=== PATIENT | female | born 1940 | race Caucasian/White ===

== ENCOUNTER → 2018-06-18 14:39 | Outpatient (CLI) | payer MEDICARE, MEDICAID, SELFPAY ==
--- NOTE | 2018-06-18 14:48 | RAD_ITS ---
STUDY: X-RAY - LEFT SHOULDER REASON FOR EXAM: Pain radiating into neck and down arm, no specific injury. TECHNIQUE: 4 view(s) of the shoulder. COMPARISON: None. FINDINGS: Normal glenohumeral articulation. Normal acromioclavicular joint. Normal acromion. Normal humeral head and visualized proximal humerus. The soft tissue structures are unremarkable. Normal visualized pulmonary apex. RAD/Shoulder min 2 Views IMPRESSION: Unremarkable x-ray examination of the left shoulder. Electronically Signed: Koko Morton MD at 15:48 EDT Tel , Service support ,
== END ==
PROVIDERS: Family Provider Family Medicine; PCP Family Medicine; Referring Provider Nurse Practitioner Family; Visit Provider Nurse Practitioner Family
DX: M25.512 Pain in left shoulder (principal)
CPT/HCPCS: 73030

== ENCOUNTER → 2020-08-20 14:13 | Outpatient (CLI) | payer MEDICARE, MEDICAID, SELFPAY ==
[2020-08-20 17:24] LABS: Erythrocyte Sedimentation Rate 3 mm/hr (0-30)
[2020-08-20 17:26] LABS: Absolute Lymphocyte Count 0.75 X10^3/uL (0.83-4.51); Absolute Neutrophil Count 10.9 X10^3/uL (2.0-7.7); Basophil# 0.04 X10^3/uL; Basophil% 0.3 % (0-1); Eosinophil# 0.02 X10^3/uL; Eosinophils% 0.2 % (0-5); Hematocrit 41.1 % (37-47); Lymphocyte # 0.75 X10^3/ul (0.83-4.51); Lymphocyte % 6.2 % (19-41); Mean Corp Hgb Conc 31.6 g/dL (32-36); Mean Corpuscular Hgb 26.7 pg (27.0-32.0); Mean Corpuscular Volume 84.6 fL (81-99); Mean Platelet Vol. 11.2 fl (6.2-12.0); Monocyte# 0.44 X10^3/uL; Monocyte% 3.6 % (0-10); NRBC Flagged by Analyzer 0 % (0-5); Neutrophil # 10.87 X10^3/uL (2.7-7.7); Neutrophil % 89.2 % (47-70); Platelet Count 271 K/mm3 (150-450); RBC Distribution Width CV 13.1 % (11.6-14.6); RBC Distribution Width SD 40.3 fl (35.1-43.9); Red Blood Count 4.86 M/mm3 (4.2-5.4); White Blood Count 12.2 K/mm3 (4.4-11.0)
[2020-08-20 17:38] LABS: CRP < 2.90 mg/L (0.0-3.0)
== END ==
PROVIDERS: PCP Family Medicine; Referring Provider Specialist; Visit Provider Specialist
DX: Z96.651 Presence of right artificial knee joint (principal)
CPT/HCPCS: 36415; 85025; 85652; 86140

== ENCOUNTER 2020-09-30 11:07 | Emergency (ER) | payer MEDICARE, MEDICAID, SELFPAY ==
[2020-09-30 11:08] VITALS: BP 141/60; PULSE 72; RESP 14; TEMP 36.6; O2SAT 100; BMI 27.4
--- NOTE | 2020-09-30 11:47 | ED.VIS.LOWEX ---
HPI History of Present Illness Chief Complaint: Lower Extremity Injury Informant: patient Occured/Mechanism Comment: No history of trauma. Onset/Context/Timing Context: Sudden Onset Timing: Continuous Quality of Pain: Dull and Aching Location: Right knee Current Severity: Mild Maximum Severity: Moderate Worsened by: Weightbearing Relieved by: Rest Associated Symptoms Associated Symptoms: Negative for Parasthesia, Weakness and Loss of Funtion Narrative Narrative: Patient is an elderly woman with history of type 2 diabetes, coronary disease, GERD and osteoarthritis. She is status post right total knee arthroplasty by Dr. Earl Juárez last year. He is concerned she has rheumatoid arthritis. She not able to see a color checker roving or yarn until the latter portion of November. Patient states she was admitted for similar presentation 1 month ago. She states she was placed on Medrol Dosepak with marked improvement. She denies fever, chills night sweats. She denies any other complaints. She did fall 3 days ago. She did hit her head. There is no loss conscious. She is not amnestic. She is not on an anticoagulant. She did sustain a bruise to her left leg. Tetanus Immunization: 5-10 years Prior similar symptoms: Yes Recent Illness/Hospitalization: Yes (1 month ago) PFSH PFS Home Medications alendronate [Fosamax] 70 mg PO QWEEK 04/06/16 [History Last Taken Unknown] calcium carbonate-vitamin D3 [Caltrate 600 Plus D3 Tablet] 1 ea PO BID 04/06/16 [History Last Taken Unknown] celecoxib [Celebrex] 200 mg PO DAILY 04/06/16 [History Last Taken Unknown] cyclobenzaprine 10 mg PO QHS 04/06/16 [History Last Taken Unknown] hydrocodone-acetaminophen [[place] 5-325 Tablet] 1 ea PO Q6H PRN PRN 04/06/16 [History Last Taken Unknown] metformin 500 mg PO DAILY 04/06/16 [History Last Taken Unknown] qxiupjrc-[id number]-SJ-lycopen-lutein [Centrum Silver Tablet] 1 ea PO DAILY 04/06/16 [History Last Taken Unknown] nitroglycerin 0.4 mg SUBLINGUAL Q5M PRN 04/06/16 [History Last Taken Unknown] pantoprazole 40 mg PO DAILY 04/06/16 [History Last Taken Unknown] pravastatin 40 mg PO DAILY 04/06/16 [History Last Taken Unknown] prednisone 10 mg PO QODAY 04/06/16 [History Last Taken Unknown] ramipril 1.25 mg PO DAILY 04/06/16 [History Last Taken Unknown] sertraline [Zoloft] 100 mg PO DAILY 04/06/16 [History Last Taken Unknown] sumatriptan succinate [Imitrex] 100 mg PO .X1 PRN 04/06/16 [History Last Taken Unknown] hydrocodone-acetaminophen 1 tab PO Q6H PRN PRN 3 Days #10 tablet 09/30/20 [Rx Last Taken Unknown] methylprednisolone [Medrol ([place])] 4 mg PO UD #21 tab 09/30/20 [Rx Last Taken Unknown] Allergy/AdvReac Type Severity Reaction Status Date / Time butorphanol [From Stadol] AdvReac Other Verified 09/30/20 11:08 hydromorphone [From Dilaudid] AdvReac Nausea Verified 09/30/20 11:08 nalbuphine [From Nubain] AdvReac Chest Verified 09/30/20 11:08 tightness Social History (Updated 09/30/20 @ 11:[address] Maksim Jesus MD) household members: none Smoking Status: Former smoker alcohol intake: current alcohol intake frequency: holidays/special occasions only substance use type: does not use ROS ROS ED Constitutional Constitutional ED: Denies chills, fever(s), subjective, sweats or weight loss Eyes Eyes: Denies blurry vision, change in vision or diplopia ENT ENT ED: Denies ear pain, rhinorrhea or sore throat Cardiovascular Cardiovascular: Denies chest pain or palpitations Respiratory/Chest Respiratory/Chest: Denies cough, dyspnea or dyspnea on exertion Gastrointestinal Gastrointestinal: Denies diarrhea, nausea or vomiting Genitourinary Genitourinary ED: Denies dysuria, hematuria or urinary frequency Musculoskeletal Musculoskeletal: Reports other Details: Right right knee pain and swelling ; Denies arthralgias, back pain, myalgias or neck pain Integumentary Denies rash Endocrine Endocrinology: Denies polydipsia, polyphagia or polyuria Hematologic/Lymphatic Hematologic/Lymphatic: Denies easy bleeding or easy bruising EXAM Physical Exam Const Vital Signs: 09/30/20 11:08 Temperature 97.8 F Temperature Source Temporal Pulse Rate 72 Respiratory Rate 14 Blood Pressure 141/60 H Blood Pressure Mean 87 Pulse Ox 100 Oxygen Delivery Method Room Air Positive well nourished, well developed and obese General Appearance ED: well developed Nutritional Appearance: obese HEENT normocephalic and atraumatic Eyes PERRL Eyes Narrative: X proximal muscle intact. Sclerae anicteric. There is no subconjunctival hemorrhage noted. Neck full ROM and supple Thyroid: Negative for tender Chest Wall inspection of chest normal Resp normal respiratory effort and clear to auscultation bilaterally Cardio regular rate, regular rhythm, S1 normal heart sound, S2 normal heart sound and no murmurs Extremity full ROM; Negative for normal to inspection Extremity Narrative: There is an effusion of the right knee. She is able to extend 180 degrees and flex to 90 degrees. There is no laxity with varus valgus stress testing. There is no joint line tenderness. There is no neurovascular compromise. Patient does have a significant bruise anterior proximal left leg and over the patella. The patella is not tender. There is no effusion. Full active range of motion. No laxity with varus valgus stress testing. Negative Jake test. General Extremety ED: Negative for cyanosis, edema or weight-bearing difficulty General Extremity: Negative for cyanosis, edema or weight-bearing difficulty Neuro oriented x3, CN's II-XII intact bilaterally and no sensory deficits noted Sensorium / Orientation: alert and oriented to person Motor Exam: strength 5/5 throughout Psych mental status grossly normal Skin Skin Narrative: Bruises as previously described Lesions: no lesions Rashes: no rashes MDM MDM MDM Narrative Medical decision making narrative: We will obtain appropriate laboratory studies for rheumatoid arthritis and she not able to see her color checker roving or yarn until the end of November. Plan is to medicate with [place] and discharged with prescription for Medrol Dosepak and [place]. Reasons rheumatoid studies were performed is to facilitate work-up for Dr. Earl Juárez. If patient has remote arthritis she was told that her prosthesis would need removal. BMS Discharge Plan Triage Chief Complaint: Lower Extremity Injury ED Provider: Maksim Jesus Dx/Rx/DC Orders Clinical Impression: Effusion of knee joint right, Polyarthralgia Instructions: ED Arthralgia, ED Knee Effusion Prescriptions: New hydrocodone-acetaminophen [hydrocodone-acetaminophen] 1 TABLET tablet 1 tab PO Q6H PRN PRN (Reason: Pain) 3 Days Qty: 10 RF: 0 methylprednisolone [Medrol (Geronimo)] 4 mg tablets,dose pack 4 mg PO UD Qty: 21 RF: 0 No Action celecoxib [Celebrex] 200 MG capsule 200 mg PO DAILY RF: 0 cyclobenzaprine 10 MG tablet 10 mg PO QHS RF: 0 metformin 500 MG tablet 500 mg PO DAILY RF: 0 prednisone 10 MG tablet 10 mg PO QODAY RF: 0 pravastatin 40 MG tablet 40 mg PO DAILY RF: 0 sumatriptan succinate [Imitrex] 100 MG tablet 100 mg PO .X1 PRN RF: 0 hydrocodone-acetaminophen [[place]] 1 EACH tablet 1 ea PO Q6H PRN PRN (Reason: Pain) RF: 0 alendronate [Fosamax] 70 MG tablet 70 mg PO QWEEK RF: 0 sertraline [Zoloft] 100 MG tablet 100 mg PO DAILY RF: 0 pantoprazole 40 MG tablet 40 mg PO DAILY RF: 0 nitroglycerin 0.4 MG tablet 0.4 mg sublingual Q5M PRN (Reason: Chest Pain) RF: 0 ramipril 1.25 MG capsule 1.25 mg PO DAILY RF: 0 [id number]-gxu-JN-lycopen-lutein [Centrum Silver] 1 EACH tablet 1 ea PO DAILY RF: 0 calcium carbonate-vitamin D3 [Caltrate with Vitamin D3] 1 EACH tablet 1 ea PO BID RF: 0 Primary Care Provider: Rene Caputo Referrals: Rene Caputo MD [Primary Care Provider] - Disposition Disposition: Home, Self Care
[2020-09-30] MEDS: HYDROcodone Bitartrate/Apap 5/325 Tablet PO (11:59)
[2020-09-30 12:07] LABS: Erythrocyte Sedimentation Rate 3 mm/hr (0-30)
[2020-09-30 12:11] LABS: Absolute Lymphocyte Count 1.16 X10^3/uL (0.83-4.51); Absolute Neutrophil Count 4.3 X10^3/uL (2.0-7.7); Basophil# 0.03 X10^3/uL; Basophil% 0.5 % (0-1); Eosinophil# 0.13 X10^3/uL; Eosinophils% 2.1 % (0-5); Hemoglobin 11.7 g/dL (12.0-15.0); Lymphocyte # 1.16 X10^3/ul (0.83-4.51); Lymphocyte % 18.9 % (19-41); Mean Corp Hgb Conc 31.6 g/dL (32-36); Mean Corpuscular Hgb 26.9 pg (27.0-32.0); Mean Corpuscular Volume 85.1 fL (81-99); Mean Platelet Vol. 10.6 fl (6.2-12.0); Monocyte# 0.45 X10^3/uL; Monocyte% 7.3 % (0-10); NRBC Flagged by Analyzer 0 % (0-5); Neutrophil # 4.34 X10^3/uL (2.7-7.7); Neutrophil % 70.9 % (47-70); Platelet Count 210 K/mm3 (150-450); RBC Distribution Width CV 13.8 % (11.6-14.6); RBC Distribution Width SD 43.3 fl (35.1-43.9); Red Blood Count 4.35 M/mm3 (4.2-5.4); White Blood Count 6.1 K/mm3 (4.4-11.0)
[2020-09-30 12:21] LABS: CRP < 2.90 mg/L (0.0-3.0); Rheumatoid Factor < 10.0 IU/mL (<15)
[2020-10-01 16:14] LABS: ANTINUCLEAR ANTIBODIES DIRECT Negative (Negative)
[2020-10-02 10:21] LABS: CCP IgG Antibodies 8 units (0-19)
== END 2020-09-30 12:11 | disposition home or self-care (01) ==
PROVIDERS: Emergency Provider Emergency Medicine; PCP Family Medicine
DX: M25.461 Effusion, right knee (principal); M25.561 Pain in right knee; S80.12XA Contusion of left lower leg, initial encounter; W19.XXXA Unspecified fall, initial encounter; Y93.9 Activity, unspecified; Y92.9 Unspecified place or not applicable; E11.9 Type 2 diabetes mellitus without complications; K21.9 Gastro-esophageal reflux disease without esophagitis; M19.90 Unspecified osteoarthritis, unspecified site; Z79.84 Long term (current) use of oral hypoglycemic drugs; Z79.899 Other long term (current) drug therapy; Z87.891 Personal history of nicotine dependence
CPT/HCPCS: 85025; 85652; 86038; 86140; 86200; 86225; 86235; 86431; 99284; A4216